=== PATIENT | male | born 1990 | race Two or more races ===

== ENCOUNTER 2020-05-04 14:56 | Outpatient (CLI) | payer OTHER | END 2020-05-04 14:57 | disposition home or self-care (01) | LOC: CERTIFICAD 14:56 | PROVIDERS: ATTEND Family Medicine | DX: Z11.1 Encounter for screening for respiratory tuberculosis (principal) ==

== ENCOUNTER 2020-06-04 17:22 | Outpatient (CLI) | payer OTHER | END 2020-06-04 17:23 | disposition home or self-care (01) | LOC: PPH VACUNA 17:22 | DX: Z23 Encounter for immunization (principal) | CPT/HCPCS: 90688; G0008 ==

== ENCOUNTER 2021-06-13 08:00 | Outpatient (CLI) | payer OTHER | END 2021-06-13 08:30 | disposition home or self-care (01) | LOC: PPH VACUNA 08:00 | PROVIDERS: ATTEND Emergency Medicine Pediatric Emergency Medicine | DX: Z23 Encounter for immunization (principal) ==